=== PATIENT | female | born 1995 | race Caucasian/White ===

== ENCOUNTER 2017-01-08 05:44 | Inpatient (IN) | payer OTHER ==
[~2017-01-08] VITALS: Ht 160 cm; Wt 98.7 kg
[2017-01-08 06:01] VITALS: BP 125/81; PULSE 93; RESP 18; Ht 160 cm; Wt 98.7 kg
[2017-01-08] MEDS: LACTATED RINGER'S 1,000 ML IV SCH ×3 (08:59→20:23)
[2017-01-08] MEDS ORDERED: BUTORPHANOL 2 MG INJ IV PRN (09:00)
[2017-01-08] MEDS ORDERED: CARBOPROST 250 MCG INJ IM PRN (09:00)
[2017-01-08] MEDS ORDERED: MISOPROSTOL 200 MCG TAB PR PRN (09:00)
[2017-01-08] MEDS ORDERED: ACETAMINOPHEN/CODEINE #3 TAB PO PRN (09:00)
[2017-01-08] MEDS ORDERED: OXYTOCIN 30 UNITS/LR 500 ML IV PRN (09:00)
[2017-01-08] MEDS ORDERED: LIDOCAINE 1% (MPF) 30 ML INJ INJ PRN (09:00)
[2017-01-08] MEDS ORDERED: LACTATED RINGER'S 1,000 ML IV PRN (09:00)
[2017-01-08] MEDS ORDERED: OXYTOCIN 30 UNITS/LR 500 ML IV SCH ×3 (09:00→19:00)
[2017-01-08] MEDS ORDERED: IBUPROFEN 600 MG TAB PO PRN (09:00)
[2017-01-08] MEDS ORDERED: MINERAL OIL LIGHT 10 ML VIAL TOP PRN (09:00)
[2017-01-08] MEDS ORDERED: METHYLERGONOVINE 0.2 MG INJ IM PRN (09:00)
[2017-01-08 09:20] LABS: ADD SCAN DIFF NO
[2017-01-08 09:23] LABS: BASOPHILS % 0.1 % (0.0-2.0); EOSINOPHILS % 0.1 % (0.0-7.0); HEMATOCRIT 36.6 % (37.0-47.0); HEMOGLOBIN 11.9 g/dl (12.0-16.0); LYMPHOCYTES # 2.2 10^3/ul (0.8-2.9); LYMPHOCYTES % 16.4 % (15.0-51.0); MEAN CORPUSCULAR HEMOGLOBIN 27.4 pg (29.0-33.0); MEAN CORPUSCULAR HGB CONC 32.5 g/dl (32.0-37.0); MEAN CORPUSCULAR VOLUME 84.1 fl (82.0-101.0); MEAN PLATELET VOLUME 11.6 fl (7.4-10.4); MONOCYTE # 0.6 10^3/ul (0.3-0.9); MONOCYTES % 4.4 % (0.0-11.0); NEUTROPHIL # 10.5 10^3/ul (1.6-7.5); NEUTROPHILS % 78.6 % (39.0-77.0); PLATELET COUNT 175 10^3/UL (140-415); RED BLOOD COUNT 4.35 10^6/ul (4.20-5.40); RED CELL DISTRIBUTION WIDTH 13.2 % (11.5-14.5); WHITE BLOOD COUNT 13.4 10^3/ul (4.8-10.8)
[2017-01-08 09:33] LABS: INR 0.9; PROTIME 12.1 Sec (12.2-14.2); PT RATIO 0.9
[2017-01-08 09:34] LABS: PARTIAL THROMBOPLASTIN TIME 26.9 Sec (25.0-35.0)
[2017-01-08] MEDS ORDERED: FENTAnyl 2MCG/ML-ROPIV 0.2% 100 ML ONE (10:24)
[2017-01-08] MEDS ORDERED: ONDANSETRON 4 MG INJ IV PRN (11:00)
[2017-01-08] MEDS ORDERED: DIPHENHYDRAMINE 50 MG INJ IV PRN (11:00)
[2017-01-08] MEDS ORDERED: NALOXONE (0.4 MG/ML) INJ IV PRN (11:00)
[2017-01-08] MEDS: FENTAnyl 2MCG/ML-ROPIV 0.2% 100 ML BAG EPI SCH (19:13)
[2017-01-09] MEDS: LACTATED RINGER'S 1,000 ML IV SCH (00:08)
[2017-01-09] MEDS: FENTAnyl 2MCG/ML-ROPIV 0.2% 100 ML BAG EPI SCH (01:34)
[2017-01-09] MEDS ORDERED: LACTATED RINGER'S 1,000 ML IV* SCH (07:01)
--- NOTE | 2017-01-09 07:10 | LDN ---
Date/Time of Note Date/Time of Note DATE: 01/09/17 TIME: 07:07 Delivery Summary of a viable baby boy weighing 3765 grams, or 8# 5oz, 20.5" long, and with Apgars of 7/9. Weeks of Gestation 38 weeks Placenta Delivered: Spontaneously Episiotomy: No Perineal laceration: 2 Laceration repair: Second degree perineal laceration and a first degree left vaginal laceration repaired with 2-0 chromic. Anesthesia type: Epidural Estimated blood loss: 350 Sponge & Needle done & correct: Yes All needle counts correct: Yes Any foreign bodies felt in the: No (vagina) Problems: Infant Delivery Information Sex Sex: male Apgars 1 Minute: 7 5 Minute: 9 Suctioning Nose & mouth suctioned at monserrat: Yes Delee suction performed: Yes Umbilical Cord Umbilical cord with: 3 Vessels Cord presentations: no nuchal cord Cord Blood was obtained: Yes Mother & Baby Disposition Disposition Mom & Baby to Maternity; Good: Yes Baby to NICU: No RUDY LAKE MD Jan 09, 2017 07:10
--- NOTE | 2017-01-09 07:17 | HP ---
Date/Time of Note Date/Time of Note DATE: 01/09/17 TIME: 07:11 OB - History Hx of Present Free Text/Dictation 21 y.o. G1 with an IUP at 38 weeks came in labor with intact membranes. Chief Complaint: Labor Last Menstrual Period: Apr 18, 2016 Estimated Due Date: Jan 23, 2017 : 1 Para: 0 Care: Good Care Ultrasounds: Normal mid trimester US Obstetrical Complications: None Medical Complications: None Past Family/Social History * Past Medical, Surgical, Family and Obstetric Histories reviewed from chart. Blood Type: O+ Rubella: immune RPR/VDRL: Negative GBS Status: Negative HBsAG: Negative OB Admission Exam Vital Signs Vital Signs Vital Signs Date Time Temp Pulse Resp B/P Pulse Ox O2 Delivery O2 Flow Rate FiO2 01/08/17 06:01 98.0 93 18 125/81 97 Room Air Physical Exam HEENT: WNL Heart: Rhythm Normal Lungs: Clear Abdomen: WNL Extremities: Normal Reflexes: Normal Cervical Dilatation: 4cm Effacement: Other (90%) Station: -2 Membranes: Intact Amniotic Fluid: Clear Heart Rate: 130's Decelerations: No Decelerations Varibility: Moderate Contractions on Admission: < 5 Minutes Apart Last 72 hours Lab Results CBC & BMP 01/08/17 05:00 OB Assessment/Plan Reason for admission: active labor Plan: Expectant Management, Other (Augmentation as needed) Induction Method: per Pitocin Protocol RUDY LAKE MD Jan 09, 2017 07:17
[2017-01-09] MEDS ORDERED: BENZOCAINE 20% 56 ML SPRAY TOP PRN (07:30)
[2017-01-09] MEDS ORDERED: CARBOPROST 250 MCG INJ IM PRN (07:30)
[2017-01-09] MEDS ORDERED: METHYLERGONOVINE 0.2 MG INJ IM PRN (07:30)
[2017-01-09] MEDS ORDERED: OXYCODONE/ASPIRIN (4.88/325) TAB PO PRN (07:30)
[2017-01-09] MEDS ORDERED: MISOPROSTOL 200 MCG TAB PR PRN (07:30)
[2017-01-09] MEDS ORDERED: OXYTOCIN 30 UNITS/LR 500 ML IV PRN (07:30)
[2017-01-09 08:35] VITALS: BP 140/63; PULSE 91; RESP 18
[2017-01-09 09:05] VITALS: BP 119/62; PULSE 94; RESP 20
[2017-01-09] MEDS: LANOLIN 7 GM TUBE TOP PRN (09:56)
[2017-01-09] MEDS: IBUPROFEN 600 MG TAB PO SCH ×3 (12:15→23:40)
[2017-01-09 12:30] VITALS: BP 124/67; PULSE 120; RESP 20
[2017-01-09 15:40] VITALS: BP 115/63; PULSE 84; RESP 19
[2017-01-09 20:00] VITALS: BP 98/77; PULSE 100; RESP 19
[2017-01-09 23:40] VITALS: BP 116/57; PULSE 80; RESP 17
[2017-01-10 04:00] VITALS: BP 102/56; PULSE 74; RESP 18
[2017-01-10] MEDS: IBUPROFEN 600 MG TAB PO SCH ×4 (05:28→23:18)
[2017-01-10 08:00] VITALS: BP 105/51; PULSE 89; RESP 18
[2017-01-10 08:18] LABS: ADD SCAN DIFF NO
[2017-01-10 08:26] LABS: BASOPHILS % 0.2 % (0.0-2.0); EOSINOPHILS # 0.1 10^3/ul (0.0-0.5); EOSINOPHILS % 0.9 % (0.0-7.0); HEMATOCRIT 29.6 % (37.0-47.0); HEMOGLOBIN 9.4 g/dl (12.0-16.0); LYMPHOCYTES # 3.5 10^3/ul (0.8-2.9); MEAN CORPUSCULAR HEMOGLOBIN 27.6 pg (29.0-33.0); MEAN CORPUSCULAR HGB CONC 31.8 g/dl (32.0-37.0); MEAN CORPUSCULAR VOLUME 87.1 fl (82.0-101.0); MEAN PLATELET VOLUME 12.2 fl (7.4-10.4); MONOCYTES % 7.1 % (0.0-11.0); NEUTROPHIL # 9.3 10^3/ul (1.6-7.5); NEUTROPHILS % 66.3 % (39.0-77.0); PLATELET COUNT 161 10^3/UL (140-415); RED CELL DISTRIBUTION WIDTH 13.7 % (11.5-14.5)
--- NOTE | 2017-01-10 09:24 | PN ---
Date/Time of Note Date/Time of Note DATE: 01/10/17 TIME: 09:23 OB Subjective Subjective Subjective day#1 Afebrile VS stable abdomen soft uterus for nuclear normal extremity normal Laboratory Tests Test 01/10/17 07:15 White Blood Count 14.010^3/ul Red Blood Count 3.4010^6/ul Hemoglobin 9.4g/dl Hematocrit 29.6% Mean Corpuscular Volume 87.1fl Mean Corpuscular Hemoglobin 27.6pg Mean Corpuscular Hemoglobin Concent 31.8g/dl Red Cell Distribution Width 13.7% Platelet Count 97477^3/UL Mean Platelet Volume 12.2fl Neutrophils % 66.3% Lymphocytes % 25.0% Monocytes % 7.1% Eosinophils % 0.9% Basophils % 0.2% Nucleated Red Blood Cells % 0.0/100WBC Neutrophils # 9.310^3/ul Lymphocytes # 3.510^3/ul Monocytes # 1.010^3/ul Eosinophils # 0.110^3/ul Basophils # 0.010^3/ul Nucleated Red Blood Cells # 0.010^3/ul Current Medications Medications (Trade) Dose Ordered Sig/Eyal Route PRN Reason Start Time Stop Time Status Last Admin Dose Admin Lactated Ringer's (Lr) 1,000 ml @ 125 mls/hr Q8H IV 01/08/17 08:37 01/09/17 07:06 DC 01/09/17 00:08 Butorphanol Tartrate (Stadol) 2 mg Q2H PRN IV PAIN 01/08/17 09:00 01/09/17 07:06 DC Lidocaine 30 ml 30 ml ONCE PRN INJ EPISIOTOMY/TEARING 01/08/17 09:00 01/09/17 07:06 DC 01/09/17 06:07 Oxytocin/Lactated Ringer's 500 ml @ 125 mls/hr ONCE -MAY REPEAT X1 IV 01/08/17 09:00 01/09/17 07:06 DC 01/09/17 05:31 Oxytocin/Lactated Ringer's 500 ml @ 125 mls/hr ONCE IV 01/08/17 09:00 01/09/17 07:06 DC 01/09/17 06:02 Ibuprofen (Motrin) 600 mg ONCE PRN PO Mild Pain (Pain Score 1-3) 01/08/17 09:00 01/09/17 07:06 DC Acetaminophen/ Codeine Phosphate 2 tab 2 tab ONCE PRN PO Moderate to Severe Pain (4-10) 01/08/17 09:00 01/09/17 07:06 DC Lactated Ringer's 1,000 ml @ 2,000 mls/hr Q30M PRN IV PRE-EPIDURAL BOLUS 01/08/17 09:00 01/09/17 07:07 DC 01/08/17 10:44 Oxytocin/Lactated Ringer's 500 ml @ 0 mls/hr ONCE PRN IV For Hemorrhage Management 01/08/17 09:00 01/09/17 07:07 DC Methylergonovine Maleate (Methergine) 0.2 mg ONCE PRN IM VAGINAL BLEEDING 01/08/17 09:00 01/09/17 07:07 DC Carboprost Tromethamine (Hemabate) 250 mcg ONCE PRN IM VAGINAL BLEEDING 01/08/17 09:00 01/09/17 07:07 DC Misoprostol (Cytotec) 1,000 mcg ONCE PRN NM VAGINAL BLEEDING 01/08/17 09:00 01/09/17 07:07 DC Mineral Oil 30 ml 30 ml PRN PRN TOP LABOR INDUCTION 01/08/17 09:00 01/09/17 07:06 DC Fentanyl/ Ropivacaine 100 ml @ ud STK-MED ONCE .ROUTE 01/08/17 10:24 01/08/17 10:25 DC Naloxone HCl (Narcan) 0.1 mg Q2M PRN IV FOR RESP RATE 8 OR LESS 01/08/17 11:00 01/09/17 07:06 DC Diphenhydramine HCl (Benadryl) 25 mg Q6H PRN IV ITCHING 01/08/17 11:00 01/09/17 07:06 DC Ondansetron HCl (Zofran Inj) 4 mg Q6H PRN IV NAUSEA AND/OR VOMITING 01/08/17 11:00 01/09/17 07:06 DC Fentanyl/ Ropivacaine 100 ml 100 ml EPIDURAL INFUSION EPI 01/08/17 11:00 01/09/17 07:07 DC 01/09/17 01:34 Oxytocin/Lactated Ringer's 500 ml @ 0 mls/hr TITRATE IV 01/08/17 19:00 01/09/17 07:06 DC 01/08/17 19:13 Lactated Ringer's (Lr) 1,000 ml @ 125 mls/hr Q8H IV* 01/09/17 07:01 01/09/17 19:24 DC 01/09/17 09:56 Ibuprofen (Motrin) 600 mg Q6 PO 01/09/17 12:00 01/10/17 05:28 Oxycodone/Aspirin (Percodan) 1 tab Q3H PRN PO PAIN LEVEL 1-5 01/09/17 07:30 01/09/17 07:35 Benzocaine (Dermoplast [place]) 1 spray BEDSIDE MEDICATION PRN TOP HEMORRHOID/EPISIOTMY PAIN 01/09/17 07:30 01/09/17 09:56 Lanolin (Hhg-T-[id number]) 1 applic BEDSIDE MEDICATION PRN TOP BEDSIDE FOR WIN TO NIPPLES 01/09/17 07:30 01/09/17 09:56 Diphtheria/ Tetanus/Acell Pertussis 0.5 ml 0.5 ml ONCE ONCE IM* 01/11/17 09:00 01/11/17 09:01 Oxytocin/Lactated Ringer's 500 ml @ 0 mls/hr ONCE PRN IV For Hemorrhage Management 01/09/17 07:30 Methylergonovine Maleate (Methergine) 0.2 mg ONCE PRN IM VAGINAL BLEEDING 01/09/17 07:30 Carboprost Tromethamine (Hemabate) 250 mcg ONCE PRN IM VAGINAL BLEEDING 01/09/17 07:30 Misoprostol (Cytotec) 1,000 mcg ONCE PRN NM VAGINAL BLEEDING 01/09/17 07:30 MALOU GUEVARA MD Jan 10, 2017 09:24
[2017-01-10 16:00] VITALS: BP 121/60; PULSE 76; RESP 16
[2017-01-10 20:00] VITALS: BP 115/52; PULSE 84; RESP 17
[2017-01-11 04:00] VITALS: BP 116/60; PULSE 69; RESP 17
[2017-01-11] MEDS: LANOLIN 7 GM TUBE TOP PRN (05:17)
[2017-01-11] MEDS: IBUPROFEN 600 MG TAB PO SCH ×2 (05:17→11:13)
[2017-01-11 08:00] VITALS: BP 118/57; PULSE 84; RESP 17
[2017-01-11] MEDS ORDERED: DIPHTH/TET/ACEL PERTUSS (ADULT) 0.5 ML VIAL IM* ONE (09:00)
--- NOTE | 2017-01-11 09:45 | PD.PPDC ---
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
--- NOTE | 2017-01-11 09:47 | DS ---
Date/Time of Note Date/Time of Note DATE: 01/11/17 TIME: 09:45 Discharge Summary Admission/Discharge Info Admit Date/Time Jan 08, 2017 at 08:20 Discharge Date/Time 01/11/17 0940 Final Diagnosis Post normal vaginal delivery Patient Condition: Good Procedures Normal spontaneous vaginal delivery Hospital Course Satisfactory Follow-up Plan Appointment clinic in 2 weeks for follow-up MALOU GUEVARA MD Jan 11, 2017 09:47
--- NOTE | 2017-01-11 10:06 | QN ---
Documentation Comment Under sterile condition circumcision performed using Gomco 1.1 postcircumcision Vaseline applied on the baby's penis and covered with 4 x 4 gauze post circumcision instructions given to the parents. MALOU GUEVARA MD Jan 11, 2017 10:06
== END 2017-01-11 14:19 | disposition home or self-care (01) | DRG 775 ==
LOC: OBT 05:44 → L-D 05:44 → OBT 08:20 → PP1 01-09 08:50
PROVIDERS: ADMIT Obstetrics & Gynecology; ATTEND Obstetrics & Gynecology
PROC: 10E0XZZ Delivery of Products of Conception, External Approach (ICD-10-PCS; principal; 2017-01-09)
PROC: 0KQM0ZZ Repair Perineum Muscle, Open Approach (ICD-10-PCS; 2017-01-09)
DX: O70.1 Second degree perineal laceration during delivery (principal); Z37.0 Single live birth; Z3A.38 38 weeks gestation of pregnancy
CPT/HCPCS: 85025; 85610; 85730; 86592; 86900; 86901; 87340; 90715; 99464; G0463; J2590; J3010; J7120